=== PATIENT | female | born 1995 | race American Indian/Alaskan Native ===

== ENCOUNTER 2017-11-22 18:54 | Emergency (ER) | payer BC ==
[2017-11-22 21:36] LABS: Basophils % (Auto) 0.7 % (0.0-1.8); Eosinophils % (Auto) 0.4 % (0.0-4.3); Hematocrit 41.7 % (30.3-42.9); Hemoglobin 13.7 gm/dl (10.1-14.3); Lymphocytes # (Auto) 1.3 K/mm3 (1.2-5.4); Lymphocytes % (Auto) 23.8 % (13.4-35.0); Mean Corpuscular HGB Conc 33 % (30-34); Mean Corpuscular Volume 78 fl (79-97); Monocytes # (Auto) 0.3 K/mm3 (0.0-0.8); Monocytes % (Auto) 5.2 % (0.0-7.3); Platelet Count 212 K/mm3 (140-440); Red Blood Count 5.37 M/mm3 (3.65-5.03)
[2017-11-22 21:37] LABS: Mean Corpuscular Hemoglobin 26 pg (28-32)
[2017-11-22 21:48] LABS: BUN/Creatinine Ratio 3; Blood Urea Nitrogen 4 mg/dL (7-17); Calcium 9.4 mg/dL (8.4-10.2); Hemolysis Index 79
[2017-11-22] MEDS ORDERED: ZOFRAN IV ONE (22:22)
[2017-11-22] MEDS ORDERED: NACL 0.9% 1000 ML 1,000 ML IV ONE (22:22)
[2017-11-22 22:24] LABS: HCG Qualitative,Urine Negative (Negative)
--- NOTE | 2017-11-22 22:27 | Emergency Department Report ---
ED Abdominal Pain HPI - General Chief Complaint: Dizziness Stated Complaint: DIZZY Time Seen by Provider: 11/22/17 22:17 Source: patient Mode of arrival: Ambulatory Limitations: No Limitations - History of Present Illness Initial Comments: Patient is 23 years old female history of nausea vomiting and watery diarrhea for the last 2-3 days patient stated that she is unable to keep anything down. Patient denied any fever. Describes her abdominal pain as crampy and minimally came when she started to vomit. Patient denied any urinary symptoms patient stated that she is on depo and she does not remember her last period. MD Complaint: abdominal pain Location: diffuse Radiation: none Migration to: no migration Quality: cramping Improves With: vomiting Associated Symptoms: nausea, vomiting, diarrhea - Related Data Allergies Allergy/AdvReac Type Severity Reaction Status Date / Time No Known Allergies Allergy Unverified 11/22/17 19:23 ED Review of Systems ROS: Stated complaint: DIZZY Other details as noted in HPI Comment: All other systems reviewed and negative Constitutional: denies: chills, fever Cardiovascular: denies: chest pain, palpitations, dyspnea on exertion Gastrointestinal: abdominal pain, nausea, vomiting, diarrhea Skin: denies: rash Neurological: denies: headache, numbness, paresthesias ED Past Medical Hx - Past Medical History Previous Medical History?: No - Surgical History Past Surgical History?: No - Social History Smoking Status: Never Smoker Substance Use Type: None ED Physical Exam - General Limitations: No Limitations General appearance: alert, in no apparent distress - Head Head exam: Present: atraumatic, normocephalic - ENT ENT exam: Present: mucous membranes dry - Neck Neck exam: Present: normal inspection, full ROM. Absent: tenderness, meningismus, lymphadenopathy - Respiratory Respiratory exam: Present: normal lung sounds bilaterally. Absent: respiratory distress, wheezes, rales, rhonchi, stridor, chest wall tenderness, accessory muscle use, decreased breath sounds, prolonged expiratory - Cardiovascular Cardiovascular Exam: Present: regular rate, normal rhythm, normal heart sounds - GI/Abdominal GI/Abdominal exam: Present: soft, normal bowel sounds. Absent: distended, tenderness, guarding, rebound, rigid, mass, bruit, pulsatile mass, hernia - Extremities Exam Extremities exam: Present: normal inspection, full ROM, normal capillary refill. Absent: tenderness, pedal edema, calf tenderness - Back Exam Back exam: Present: normal inspection, full ROM, CVA tenderness (L) - Neurological Exam Neurological exam: Present: alert, oriented X3, CN II-XII intact, normal gait - Skin Skin exam: Present: warm, dry, intact, normal color ED Course Vital Signs 11/22/17 11/22/17 19:19 22:51 Temperature 98.8 F Pulse Rate 110 H 54 L Respiratory 18 12 Rate Blood Pressure 140/83 O2 Sat by Pulse 99 Oximetry - Reevaluation(s) Reevaluation #1: 11/23/17 01:36 Patient stated that she is feeling much better. No nausea or vomiting. No abdominal pain. ED Medical Decision Making - Lab Data Result diagrams: 11/22/17 21:11 11/22/17 21:11 Critical care attestation.: If time is entered above; I have spent that time in minutes in the direct care of this critically ill patient, excluding procedure time. ED Disposition Clinical Impression: Abdominal pain, Gastroenteritis Disposition: DC-01 TO HOME OR SELFCARE Is pt being admited?: No Condition: Stable Instructions: Gastroenteritis (ED), Abdominal Pain (ED) Referrals: PRIMARY CARE, [Referring] - 3-5 Days
[2017-11-22 22:30] LABS: Bacteria,Urine 1+ /HPF (Negative); Bilirubin,Urine NEG (Negative); Blood,Urine LG (Negative); Color,Urine Yellow (Yellow); Mucus,Urine 1+ /HPF; Urobilinogen,Urine < 2.0 mg/dL (<2.0)
[2017-11-22 22:31] LABS: Benzodiazepines Screen,Urine PRESUMPTIVE NEGATIVE; Cannabinoid Screen,Urine PRESUMPTIVE NEGATIVE; Cocaine Screen,Urine PRESUMPTIVE NEGATIVE; Methadone Screen,Urine PRESUMPTIVE NEGATIVE; Opiate Screen,Urine PRESUMPTIVE NEGATIVE
[2017-11-22 22:49] LABS: Amphetamine Screen,Urine PRESUMPTIVE POSITIVE
[2017-11-23 02:10] VITALS: BP 121/64
== END 2017-11-23 02:11 | disposition home or self-care (01) ==
LOC: ED 18:54
DX: K52.9 Noninfective gastroenteritis and colitis, unspecified (principal)
CPT/HCPCS: 36415; 80048; 80307; 81001; 81025; 85025; 93005; 93010; 96361; 96374; 99283; G0480; J2405; J7030; 80320